=== PATIENT | female | born 1945 | race Hispanic/Latino ===

== ENCOUNTER 2018-03-03 18:30 | Emergency (ER) | payer OTHER ==
[~2018-03-03 18:30] MED LIST: CYAN500T46 PO; FENO145T37 PO; FOLI0.4T2 PO; IRON18TA PO; LISI-613 PO; METF-445 PO; METO-408 PO
[2018-03-03] MEDS ORDERED: ACETAMINOPHEN 325 MG TAB ONE (19:09)
[2018-03-03] MEDS ORDERED: TETANUS/DIPHTHERIA TOXOID [ADULT] 0.5 ML VIAL IM ONE (19:09)
== END 2018-03-03 19:58 | disposition home or self-care (01) ==
LOC: EDH 18:30
DX: S60.221A Contusion of right hand, initial encounter (principal); S80.01XA Contusion of right knee, initial encounter; I10 Essential (primary) hypertension; E78.5 Hyperlipidemia, unspecified; E11.9 Type 2 diabetes mellitus without complications; W18.39XA Other fall on same level, initial encounter; Y93.01 Activity, walking, marching and hiking; Y92.89 Other specified places as the place of occurrence of the external cause; Y99.8 Other external cause status
CPT/HCPCS: 73130; 73562; 90471; 90714

== ENCOUNTER 2019-02-02 11:50 | Observation (INO) | payer OTHER ==
[~2019-02-02] VITALS: Ht 154.9 cm; Wt 63.7 kg
[2019-02-02] MEDS ORDERED: ONDANSETRON HCL 4 MG/2 ML VIAL ONE (12:29)
[2019-02-02] MEDS ORDERED: SODIUM CHLORIDE 0.9% 1000ML 1,000 ML IV ONE (12:29)
[2019-02-02 12:38] LABS: BASOPHILS % (AUTO) 0.6 % (0.0-5.0); EOSINOPHILS % (AUTO) 4.4 % (0.0-8.0); HEMATOCRIT 36.6 % (36-48); LYMPHOCYTES % (AUTO) 25.3 % (21.0-51.0); MEAN CORPUSCULAR HEMOGLOBIN 29.3 pg (27.0-33.0); MEAN CORPUSCULAR HGB CONC 33.8 g/dL (32.0-36.0); MEAN CORPUSCULAR VOLUME 86.7 fL (79-99); MONOCYTES % (AUTO) 8.4 % (3.0-13.0); NEUTROPHILS % (AUTO) 61.3 % (40.0-77.0); NUCLEATED RED BLOOD CELLS 0.1 % (0.0-0.19); PLATELET COUNT (AUTO) 130 K/uL (130-400); RED BLOOD CELL COUNT(AUTO) 4.22 MIL/uL (4.00-5.50); RED CELL DISTRIBUTION WIDTH 13.6 % (11.0-15.5); WHITE BLOOD COUNT (AUTO) 6.1 K/uL (4.8-10.8)
[2019-02-02 12:47] LABS: CREATININE 1.4 mg/dL (0.5-1.5); POTASSIUM 4.1 mmol/L (3.5-5.1)
[2019-02-02 12:54] LABS: ALBUMIN 3.6 g/dL (3.5-5.0); BILIRUBIN,TOTAL 0.5 mg/dL (0.2-1.0)
[2019-02-02 14:38] LABS: APPEARANCE,URINE Clear (CLEAR); BILIRUBIN,URINE Negative (NEGATIVE); COLOR,URINE Yellow (YELLOW); GLUCOSE, URINE (UA) Negative (NEGATIVE); KETONES,URINE Negative (NEGATIVE); LEUKOCYTE ESTERASE ,URINE Negative (NEGATIVE); NITRATE,URINE Negative (NEGATIVE); OCCULT BLOOD,URINE Negative (NEGATIVE); PH,URINE 6.5 (5.0-8.0); PROTEIN,URINE POS 2+ mg/dL (NEGATIVE); UROBILINOGEN,URINE 0.2 mg/dL (0.2-1.0)
[2019-02-02 15:02] LABS: BACTERIA,URINE Rare /HPF (None Seen); RBC,URINE 0-1 /HPF (0-1); SQUAMOUS EPITHELIAL CELL,UR Rare /HPF (0-2); WBC,URINE 0-1 /HPF (0-1)
[2019-02-02] MEDS ORDERED: LACTATED RINGERS 1000ML 1,000 ML IV ONE (15:31)
[2019-02-02] MEDS ORDERED: ONDANSETRON HCL 4 MG/2 ML VIAL IVP PRN (15:45)
[2019-02-02] MEDS ORDERED: HYDROMORPHONE 1 MG/1 ML AMP IVP PRN (15:45)
[2019-02-02] MEDS: LACTATED RINGERS 1000ML 1,000 ML IV SCH (15:45)
[2019-02-02 16:30] VITALS: BP 169/74
[2019-02-02] MEDS ORDERED: HYDRALAZINE HCL 20 MG/ML VIAL IM PRN (16:30)
[2019-02-02] MEDS ORDERED: LABETALOL 20 MG/4 ML DISP.SYRIN IV PRN (16:30)
[2019-02-02] MEDS ORDERED: SIMV40TA5 PO (16:45)
[2019-02-02] MEDS ORDERED: EXEN2PEN SQ (16:45)
[2019-02-02] MEDS ORDERED: LISI-613 PO (16:45)
[2019-02-02] MEDS ORDERED: FOLI0.4T2 PO (16:45)
--- NOTE | 2019-02-02 17:39 | NUR ---
FLU VACCINE NOT AVAILABLE YET ON THE OMNICELL . PENDING ON PHARMACY TO BRING.
[2019-02-02] MEDS: PHARMACY COMMUNICATION MISC SCH (18:15)
[2019-02-02] MEDS: FLU VACC QUAD 2019-20(6MOS UP) 60 MCG/0.5 ML VIAL IM SCH (19:00)
[2019-02-02] MEDS: INSULIN HUMULIN R 100 UNIT/ML 3ML SQ SCH (19:00)
[2019-02-03] VITALS: BP 136/57
[2019-02-03] MEDS: LACTATED RINGERS 1000ML 1,000 ML IV SCH ×2 (02:21→10:59)
[2019-02-03 04:00] VITALS: BP 150/70
[2019-02-03] MEDS: INSULIN HUMULIN R 100 UNIT/ML 3ML SQ SCH ×4 (06:00→18:00)
[2019-02-03 06:09] LABS: HEMATOCRIT 33.6 % (36-48); MEAN CORPUSCULAR HEMOGLOBIN 29.3 pg (27.0-33.0); MEAN CORPUSCULAR HGB CONC 34.1 g/dL (32.0-36.0); MEAN CORPUSCULAR VOLUME 85.9 fL (79-99); PLATELET COUNT (AUTO) 135 K/uL (130-400); RED BLOOD CELL COUNT(AUTO) 3.92 MIL/uL (4.00-5.50); RED CELL DISTRIBUTION WIDTH 13.6 % (11.0-15.5); WHITE BLOOD COUNT (AUTO) 4.8 K/uL (4.8-10.8)
[2019-02-03 06:25] LABS: CREATININE 1.3 mg/dL (0.5-1.5)
[2019-02-03 08:00] VITALS: BP 171/69
[2019-02-03] MEDS ORDERED: ENOXAPARIN SODIUM 40 MG/0.4 ML SYRINGE SQ SCH (09:00)
[2019-02-03 11:57] VITALS: BP 146/66
[2019-02-03 16:00] VITALS: BP 129/58
[2019-02-03] MEDS: FLU VACC QUAD 2019-20(6MOS UP) 60 MCG/0.5 ML VIAL IM SCH (17:15)
--- NOTE | 2019-02-03 18:07 | NUR ---
INITIAL: Met with pt this afternoon to discuss dcp. Pt mentions that she lives w her spouse. Prior to admission was independent w ambulation and ADLs. She uses [employer] transportation services. She has at home a standard walker and sh chair. Per pt she feels safe and comfortable to return home at pr. Addendum: 02/03/19 at 1808 by YEVGENIY HANSON CM Amended: Links added.
[2019-02-03] MEDS: PHARMACY COMMUNICATION MISC SCH (18:15)
--- NOTE | 2019-02-03 18:25 | NUR ---
DISCHARGE PATIENT GIVEN DISCHARGE INSTRUCTIONS VIA TEACH BACK. 20G PIV TO RAC DISCONTINUED, TIP INTACT. NO RX GIVEN. PATIENT TO FOLLOW UP WITH PCP FOR REFERRAL FOR GENERAL SURGEON REGARDING GALL BLADDER. PATIENT STABLE AT THIS TIME.
== END 2019-02-03 18:15 | disposition home or self-care (01) ==
LOC: EDH 11:50 → EDHIP 15:28 → 3CH 16:04
PROVIDERS: ADMIT Internal Medicine Critical Care Medicine; ATTEND Internal Medicine Critical Care Medicine
DX: K85.90 Acute pancreatitis without necrosis or infection, unspecified (principal); E78.5 Hyperlipidemia, unspecified; I10 Essential (primary) hypertension; R11.2 Nausea with vomiting, unspecified; K80.20 Calculus of gallbladder without cholecystitis without obstruction; Z79.899 Other long term (current) drug therapy
CPT/HCPCS: 36415 ×2; 74176; 80048; 80053; 80061; 81001; 82150 ×2; 82948 ×4; 83690 ×2; 85025; 85027; 96360; 96361; 96372 ×2; 99284; G0378 ×27; J0360; J1650; J2405; J7030; J7120 ×2; Q2036

== ENCOUNTER 2019-04-10 10:47 | Day surgery (SDC) | payer OTHER ==
[2019-04-09 10:54] LABS: EOSINOPHILS % (AUTO) 6.9 % (0.0-8.0); HEMATOCRIT 35.8 % (36-48); LYMPHOCYTES % (AUTO) 34.6 % (21.0-51.0); MEAN CORPUSCULAR HEMOGLOBIN 29.2 pg (27.0-33.0); MEAN CORPUSCULAR HGB CONC 33.5 g/dL (32.0-36.0); MEAN CORPUSCULAR VOLUME 87.2 fL (79-99); NEUTROPHILS % (AUTO) 49.5 % (40.0-77.0); PLATELET COUNT (AUTO) 152 K/uL (130-400); RED BLOOD CELL COUNT(AUTO) 4.11 MIL/uL (4.00-5.50); RED CELL DISTRIBUTION WIDTH 13.6 % (11.0-15.5); WHITE BLOOD COUNT (AUTO) 4.4 K/uL (4.8-10.8)
[2019-04-09 11:09] VITALS: BP 119/45
[2019-04-09 11:20] LABS: CREATININE 1.8 mg/dL (0.5-1.5); POTASSIUM 4.1 mmol/L (3.5-5.1)
--- NOTE | 2019-04-09 12:10 | NUR ---
EKG INFORMED DR. ECHEVERRIA OF ABNORMAL EKG. PROCEED WITH PLANNED PROCEDURE.
[2019-04-09] MEDS: CEFAZOLIN SODIUM 1 GM VIAL IVP SCH (14:15)
[2019-04-10] VITALS (20 sets, daily range): BP systolic 148–229; BP diastolic 59–90
[~2019-04-10] VITALS: Ht 149.9 cm; Wt 62.1 kg
[~2019-04-10 10:47] MED LIST changes: -CYAN500T46 PO; +EXEN2PEN SQ; -FENO145T37 PO; -FOLI0.4T2 PO; +FOLI0.8C PO; -IRON18TA PO; -METF-445 PO; -METO-408 PO; +ONDA4TAB4 PO; +SIMV-46 PO
[2019-04-10] MEDS ORDERED: SODIUM CHLORIDE 0.9% 1000ML 1,000 ML IV ONE (11:00)
[2019-04-10] MEDS ORDERED: BUPIVACAINE/PF 0.5% 30ML VIAL ONE (12:27)
[2019-04-10] MEDS ORDERED: FENTANYL CITRATE PF 50 MCG/1 ML 2ML VIAL ONE (13:09)
[2019-04-10] MEDS ORDERED: LIDOCAINE PF 2% 5ML ABBOJECT ONE (13:09)
[2019-04-10] MEDS ORDERED: ONDANSETRON HCL 4 MG/2 ML VIAL ONE ×2 (13:09→14:42)
[2019-04-10] MEDS ORDERED: NEOSTIGMINE 5MG/5ML SYR IV ONE (13:09)
[2019-04-10] MEDS ORDERED: SUCCINYLCHOLINE 200MG/10ML SYR ONE (13:09)
[2019-04-10] MEDS ORDERED: GLYCOPYRROLATE 1 MG/5 ML SYRINGE ONE (13:09)
[2019-04-10] MEDS ORDERED: ROCURONIUM 10MG/1ML SYR 10 MG/ML ML ONE (13:09)
[2019-04-10] MEDS ORDERED: DEXAMETHASONE SOD PHOSPHATE 10MG/ML 1ML VIAL ONE (13:09)
[2019-04-10] MEDS ORDERED: PROPOFOL 10 MG/ML 20ML VIAL IV ONE (13:09)
[2019-04-10] MEDS: CEFAZOLIN SODIUM 1 GM VIAL IVP SCH (13:15)
[2019-04-10] MEDS ORDERED: EPHEDRINE SULFATE 50 MG/ML AMPULE ONE (13:43)
[2019-04-10] MEDS ORDERED: MEPERIDINE-PF 25 MG/ML SYG ONE ×3 (13:48→14:45)
[2019-04-10] MEDS ORDERED: ESMOLOL HCL 10 MG/ML 10 ML VIAL ONE (13:49)
[2019-04-10] MEDS ORDERED: LABETALOL 20 MG/4 ML DISP.SYRIN IV ONE (14:21)
[2019-04-10] MEDS ORDERED: HYDRALAZINE HCL 20 MG/ML VIAL ONE (14:51)
[2019-04-10] MEDS ORDERED: METOCLOPRAMIDE 10 MG/2 ML VIAL ONE (15:19)
[2019-04-10] MEDS ORDERED: TRAMADOL HCL 50 MG TABLET PO SCH (16:00)
[2019-04-10] MEDS ORDERED: TRAMADOL HCL 50 MG TABLET ONE (16:04)
--- NOTE | 2019-04-10 17:00 | NUR ---
PT STABLE, NO DISTRESS, DRESSINGS TO ABDOMEN D/I. STATES MILD DISCOMFORT AFTER MEDICATION GIVEN, PAIN IMPROVED. PT ABLE TO TOLERATED FLUIDS. NAUSEA SUBSIDED. POST CARE INSTRUCTIONS AND PRESCRIPTION GIVEN TO SON, VERBALIZED UNDERSTANDING. PT IV DISCONTINUED, PT DRESSED WITH ASSISTANCE. PT TAKEN OUT IN WHEELCHAIR AND DRIVEN HOME BY SON.
== END 2019-04-10 17:00 | disposition home or self-care (01) ==
LOC: DAH 10:47
PROVIDERS: ATTEND Student in an Organized Health Care Education/Training Program
DX: K80.10 Calculus of gallbladder with chronic cholecystitis without obstruction (principal); E78.5 Hyperlipidemia, unspecified; I10 Essential (primary) hypertension; E11.9 Type 2 diabetes mellitus without complications; Z79.899 Other long term (current) drug therapy; Z98.890 Other specified postprocedural states; Z90.710 Acquired absence of both cervix and uterus; Z88.5 Allergy status to narcotic agent; Z88.2 Allergy status to sulfonamides; Z88.1 Allergy status to other antibiotic agents; Z82.49 Family history of ischemic heart disease and other diseases of the circulatory system; Z83.3 Family history of diabetes mellitus; Z79.82 Long term (current) use of aspirin
CPT/HCPCS: 36415; 47562; 80048; 82948 ×2; 85025; 88304; 93005; A4215; A4221; A4222; A4223; A4600; A4649 ×4; A4663; A4930; A6206; A6260; C1769 ×3; J0330; J0360; J0690; J1100; J2001; J2175 ×3; J2405 ×2; J2704; J2710; J2765; J3010; J3490 ×4; J7030 ×2

== ENCOUNTER → 2024-11-05 | Outpatient (CLI) | payer OTHER ==
[~2024-11-05] MED LIST changes: +ASPI-1026 PO; +FOLI0.4T6 PO; -FOLI0.8C PO; -LISI-613 PO; +LISI20TA24 PO; -ONDA4TAB4 PO
--- NOTE | 2024-11-05 16:44 | HMCIMG ---
CT HEART SAVER PROMOTIONAL HISTORY: Calcium scoring COMPARISON: None TECHNIQUE: Computed tomography of the heart was performed with ECG gating and suspended respiration. Postprocessing was performed on a computer workstation to obtain diastolic phase images, determine calcium score and provide a quantitative assessment of extent of disease. This CT included only the heart. HeartSaver score is 1850.5. Please see cardiac calcium score report. The available CT chest images show no acute finding. CT was performed with one or more following dose reduction techniques: automated exposure control, adjustment of the mA and kv according to patient's size, or use of a iterative reconstruction technique.
== END | disposition home or self-care (01) ==
LOC: RAH 12:45
PROVIDERS: ATTEND Internal Medicine Cardiovascular Disease
DX: Z13.6 Encounter for screening for cardiovascular disorders (principal)
CPT/HCPCS: 75571